=== PATIENT | female | born 1985 | race Caucasian/White ===

== ENCOUNTER 2018-01-06 19:29 | Emergency (ER) | payer MEDICAID ==
[~2018-01-06] VITALS: Ht 160 cm; Wt 54.4 kg
[2018-01-06 19:30] VITALS: BP_SYST 112
[2018-01-06 21:27] VITALS: BP_SYST 115
== END 2018-01-06 21:28 | disposition home or self-care (01) ==
LOC: SED 19:29
DX: O03.9 Complete or unspecified spontaneous abortion without complication (principal); Z3A.11 11 weeks gestation of pregnancy
CPT/HCPCS: 36415; 84702-TC; 99283